=== PATIENT | male | born 1945 | race Caucasian/White ===

== ENCOUNTER 2018-06-02 13:56 | Emergency (ER) | payer OTHER ==
[~2018-06-02] VITALS: Ht 177.8 cm; Wt 136.1 kg
[~2018-06-02 13:56] MED LIST: CLEOCIN HCL300 MG PO; CLONIDINE0.1 M1 PO; FLO4 PO; GLIPIZIDE5 MG PO; KLOR-CON M2020 MEQ PO; LAC PO; LORAZEPAM1 MG PO; METFORMIN HCL1000 MG PO; METOCLOPRAMIDE10 MG PO; MONTELUKAST SOD10 M1 PO; NIFEDIPINE ER30 MG PO; PRILOSEC20 MG PO; SER25 PO; TOPROL XL100 MG PO
[2018-06-02 14:06] VITALS: BP 121/73; Ht 177.8 cm; Wt 136.1 kg
== END 2018-06-02 16:44 | disposition home or self-care (01) ==
LOC: ED 13:56
DX: K04.7 Periapical abscess without sinus (principal); I10 Essential (primary) hypertension; E11.9 Type 2 diabetes mellitus without complications; Z98.890 Other specified postprocedural states
CPT/HCPCS: J3490

== ENCOUNTER 2018-12-03 10:35 | Emergency (ER) | payer OTHER ==
[~2018-12-03] VITALS: Ht 172.7 cm; Wt 83.5 kg
[2018-12-03 12:15] LABS: BASOPHIL % 0.6 % (0-2); PLATELET COUNT 206 x10^3mcL (130-400); RED CELL DISTRIBUTION WIDTH 13.6 % (11.5-14.5)
[2018-12-03 12:36] LABS: CALCIUM 8.8 mg/dL (8.5-10.1); CARBON DIOXIDE 34.4 mmol/L (21-32); CHLORIDE SERUM 108 mmol/L (98-107); CREATININE SERUM 0.9 mg/dL (0.7-1.3); GLUCOSE SERUM 95 mg/dL (74-106); POTASSIUM SERUM 3.7 mmol/L (3.5-5.1); SODIUM SERUM 147 mmol/L (136-145)
[2018-12-03 12:46] LABS: ALKALINE PHOSPHATASE 85 U/L (46-116); ALT/SGPT 16 U/L (16-63); AST/SGOT 8 U/L (15-37); BILIRUBIN TOTAL 0.27 mg/dL (0.20-1.00); TOTAL PROTEIN, SERUM 6.3 g/dL (6.4-8.2)
[2018-12-03 15:08] LABS: microscopic required? YES; urine erythrocyte TRACE (NEGATIVE)
[2018-12-03 15:19] VITALS: BP 160/84
== END 2018-12-03 15:19 | disposition home or self-care (01) ==
LOC: ED 10:35
PROVIDERS: Emergency Medicine
DX: R60.9 Edema, unspecified (principal); I10 Essential (primary) hypertension; E11.9 Type 2 diabetes mellitus without complications
CPT/HCPCS: 36415; 83880; Q0092

== ENCOUNTER 2018-12-11 19:06 | Emergency (ER) | payer OTHER | END 2018-12-11 19:55 | disposition left against medical advice (07) | LOC: ED 19:06 | DX: Z53.21 Procedure and treatment not carried out due to patient leaving prior to being seen by health care provider (principal) ==

== ENCOUNTER 2019-05-08 17:55 | Inpatient (IN) | payer OTHER ==
[~2019-05-08] VITALS: Ht 177.8 cm; Wt 119.0 kg
--- NOTE | 2019-05-08 18:36 | NUR ---
FLU SPECIMEN COLLECTED AND GIVEN TO ENTERPRISE ACCOUNT EXECUTIVE.
[2019-05-08 18:39] LABS: BASOPHIL % 1.5 % (0-2); PLATELET COUNT 175 x10^3mcL (130-400); RED CELL DISTRIBUTION WIDTH 14.1 % (11.5-14.5)
--- NOTE | 2019-05-08 19:15 | NUR ---
HANDOFF REPORT GIVEN TO LEIGH WHARTON WHO WILL ASSUME ALL CARE.
[2019-05-08 19:16] LABS: ALBUMIN 3.4 g/dL (3.4-5.0); ALKALINE PHOSPHATASE 96 U/L (46-116); ALT/SGPT 21 U/L (16-63); AST/SGOT 14 U/L (15-37); BILIRUBIN DIRECT 0.23 mg/dL (0.0-0.2); BILIRUBIN TOTAL 0.79 mg/dL (0.20-1.00); CALCIUM 9.2 mg/dL (8.5-10.1); CARBON DIOXIDE 29.1 mmol/L (21-32); CHLORIDE SERUM 106 mmol/L (98-107); GLUCOSE SERUM 116 mg/dL (74-106); LIPASE 96 IU/L (73-393); POTASSIUM SERUM 3.5 mmol/L (3.5-5.1); SODIUM SERUM 142 mmol/L (136-145); TOTAL PROTEIN, SERUM 6.6 g/dL (6.4-8.2)
--- NOTE | 2019-05-08 20:18 | NUR ---
ANTIBIOTIC STARTED AFTER BLOOD CULTYRES WERE COLLECTED.. PATIENT IS STILL NOT ABLE TO GIVE URINE. FLUID IS INFUSING,
--- NOTE | 2019-05-08 21:28 | NUR ---
REPORT WAS GIVEN TO DEVENDRA. PATIENT TRANSPORTED TO ROOM 208B
--- NOTE | 2019-05-08 22:00 | NUR ---
RECEIVED PT FROM ED VIA MARIAH, CAME IN DUE TO SOB X1 DAY. DROWSY, AROUSABLE TO VERBAL STIMULI, ORIENTED X4. ABLE TO FOLLOW COMMANDS. MILD GARBLED SPEECH NOTED. NO SOB NOTED AT THIS TIME, LUNG SOUNDS DIMINISHED ON AUSCULTATION, O2 SAT=97% ON 2LPM/NC. W/ NON-PRODUCTIVE COUGH. DENIES CHEST PAIN/PRESSURE, SR W/ BBB. DENIES ABDOMINAL DISCOMFORT. ABDOMEN IS SOFT AND DISTENDED. VOIDS. W/ BUE SCABS AND LEFT 2ND TOE SCAB, SUPERVISOR ORE DRESSING. W/ BLE SWELLING AND WEAK PEDAL PULSES. SIDE RAILS UPX2. CALL LIGHT ON REACH. HOB ELEVATED AT 30 DEG. ON AIR MATTRESS. GENERALIZED WEAKNESS. ENDORSED TO PRIMARY NURSE DEVENDRA FOR CONTINUITY OF CARE
[2019-05-08 22:41] VITALS: BP 97/56
[2019-05-08 22:43] VITALS: Ht 177.8 cm; Wt 119.0 kg
--- NOTE | 2019-05-09 01:17 | NUR ---
RANDOM BS CHECKED @ 71 MG/DL. NURSE BEDSIDE SWALLOW EVAL DONE.HOB KEPT ELEVATED.TRIAL 1 TSP APPLE SAUCE GIVEN.ABLE TO SWALLOW BUT WITH SOME CUES. SIPS OF MILK GIVEN AND TOLERATED WELL.NO COUGHING NOTED.URINE SPECIMEN COLLECTED.WILL CONTINUE TO MONITOR.
[2019-05-09 02:30] VITALS: BP 97/56
[2019-05-09 03:14] LABS: microscopic required? NO
[2019-05-09 03:28] LABS: urine erythrocyte NEGATIVE (NEGATIVE)
[2019-05-09 04:31] LABS: AMPHETAMINE QUAL UR NONE DETECTED (See below)
--- NOTE | 2019-05-09 04:49 | NUR ---
PT SLEPT WELL WITH EPISODES OF CONFUSION AND DISORIENTATION.REORIENTATION PROVIDED.O2 @ 2L/MIN VIA N/C.DENIES CHESTPAIN.ALL NEEDS MET.WILL CONTINUE TO MONITOR.
--- NOTE | 2019-05-09 05:48 | NUR ---
CT SCAN OF THE HEAD DONE.LATEST TEMP @ 98.5 F.BS THIS AM @ 77 MG/DL.WILL CONTINUE TO MONITOR.
[2019-05-09 05:49] VITALS: BP 109/70
[2019-05-09 06:17] LABS: PLATELET COUNT 182 x10^3mcL (130-400); RED CELL DISTRIBUTION WIDTH 14.5 % (11.5-14.5)
[2019-05-09 06:35] LABS: CALCIUM 8.7 mg/dL (8.5-10.1); CARBON DIOXIDE 28.4 mmol/L (21-32); CHLORIDE SERUM 106 mmol/L (98-107); CREATININE SERUM 1.1 mg/dL (0.7-1.3); GLUCOSE SERUM 79 mg/dL (74-106); MAGNESIUM 1.7 mg/dL (1.8-2.4); PHOSPHOROUS 3.5 mg/dL (2.5-4.9); POTASSIUM SERUM 3.8 mmol/L (3.5-5.1); SODIUM SERUM 144 mmol/L (136-145)
--- NOTE | 2019-05-09 07:25 | NUR ---
SEEN AOX3, ORIENTED TO PERSON AND PLACE,STABLE VITAL SIGNS, AFEBRILE, ANGRY MOOD, TELE 3, SR , PAC, AND 1ST DEGREE AVB, PALPABLE PULSES, +1 EDEMA BLE, CTA ON BLF, O2 AT 2LPM VIA NC, + BS, NON TENDER, NO ORGANOMEGALY, VOIDS WITH NO DYSURIA, FULL ROM , GENERALIZED WEAKNESS, AIR MATTRESS, BLE SCALY SKIN, ESCHAR ON L 2ND TOE, NO PAIN AT THIS TIME, IV INTACT AND PATENT AT LAC AND RH, NO REDNESS OR INFILTRATION. CALL LIGHT WITHIN REACH. BED AT LOWEST POSITION.
[2019-05-09 08:17] VITALS: BP 120/60
[2019-05-09 08:47] LABS: ATYPICAL LYMPH 4 %; BAND NEUTROPHIL 1 % (0-10); SEGMENTED NEUTROPHILS 92 % (37-75); rbc morphology (normal/abnorm) NORMAL (NORMAL)
--- NOTE | 2019-05-09 09:20 | NUR ---
DR MEDINA AND MEDICAL TEAM MADE ROUNDS, QUESTIONS ADDRESSED.
--- NOTE | 2019-05-09 09:28 | NUR ---
SEEN NOT IN DISTRESS. AFEBRILE, COMPLAINTS OF CHILLS, BP 120/60 HR 69. ASA , LISINOPRIL PO GIVEN. MG 1.7. MAGNESIUM OXIDE PO GIVEN. COUGH NOTED, GUAIFENESIN ER PO GIVEN. LEUKOCYTOSIS OF 26.6 , LEVAQUIN IVPN INFUSING WELL AT 100CC/HR. NO REDNESS OR INFILTRATION. CALL LIGHT WITHIN REACH. BED AT LOWEST POSITION.
--- NOTE | 2019-05-09 10:04 | NUR ---
CANE AND PHONE BELONGINGS AT HOME OF PATIENT, CONFIRMED BY FRIEND IN FRONT OF PATIENT. PATIENT AWARE AND THANKFUL.
--- NOTE | 2019-05-09 10:37 | NUR ---
PT WAS SEEN FOR DYSPHAGIA. PT WAS ABLE TO SAFELY SWALLOW MS DIET WITH CHOPPED MEAT AND VEG WITHOUT S/S OF ASPIRATION. PT NEEDED REMINDER FOR SLOW SPEED DURING MEAL TIME. RECOMMENDATION MS DIET WITH CHOPPED MEAT AND VEG WITH THIN LIQUID SMALL BITES AND SIPS ONLY
--- NOTE | 2019-05-09 11:15 | NUR ---
ACCUCHECK DONE WITH CBG 105. NO INSULIN REQUIRED.
--- NOTE | 2019-05-09 12:14 | NUR ---
PATIENT TRANSPORTED BY [facility] PER WHEEL CHAIR TO CT SCAN. TELEMONITOR ON STANDBY AND AT PATIENT'S BEDSIDE DRAWER.
--- NOTE | 2019-05-09 12:30 | NUR ---
PATIENT TRANSPORTED BACK TO ROOM. TELEMONITOR REATTACHED TO CHEST.
[2019-05-09 17:09] VITALS: BP 152/78
--- NOTE | 2019-05-09 17:17 | NUR ---
ACCUCHECK DONE WITH CBG 92. NO INSULIN REQUIRED. MORPHINE IVP GIVEN FOR BACK PAIN. 11/07
--- NOTE | 2019-05-09 18:35 | NUR ---
dr jaramillo made aware of ct scan results and patient's high bp 152/73, associated with back pain. per dr jaramillo, she will look into it.
[2019-05-09 19:15] VITALS: BP 96/51
--- NOTE | 2019-05-09 19:15 | NUR ---
RECEIVED PT AWAKE ALERT TO NAME BIRTHDATE ONLY AND VERBALLY RESPONSIVE.BREATHING EASY AND NON-LABORED.DIMINISHED BREATHSOUNDS.TOLERATING ROOMAIR AT THIS TIME.O2 SAT @ 92%.DENIES SOB/DIFFICULTY BREATHING.DENIES CHESTPAIN.BP 96/51 MMHG,HR 76.LATEST TEMP @ 97.7F.PITTING EDEMA TO BLE.ELEVATED ON A PILLOW.ASSISTED STANDING UP TO USE URINALS AND VOIDED.BEDALARM ON AT THIS TIME.WILL CONTINUE TO MONITOR.
--- NOTE | 2019-05-10 04:39 | NUR ---
PT SLEPT WITH INTERVALS.EPISODES OF CONFUSION.REALITY ORIENTATION PROVIDED.BREATHING EASY AND NON-LABORED.USES O2 NEEDED.ON RT PROTOCOL.BREATHING TX GIVEN ORDERED.MEDICATED WITH NORCO 7.5 MG PO FOR BACK PAIN WITH GOOD RELIEF.DENIES CHESTPAIN.ALL NEEDS MET.WILL CONTINUE TO MONITOR.
[2019-05-10 06:13] VITALS: BP 130/78
[2019-05-10 06:42] LABS: CALCIUM 8.7 mg/dL (8.5-10.1); CARBON DIOXIDE 26.4 mmol/L (21-32); CHLORIDE SERUM 104 mmol/L (98-107); CREATININE SERUM 0.9 mg/dL (0.7-1.3); GLUCOSE SERUM 129 mg/dL (74-106); MAGNESIUM 1.8 mg/dL (1.8-2.4); PHOSPHOROUS 2.2 mg/dL (2.5-4.9); POTASSIUM SERUM 3.4 mmol/L (3.5-5.1); SODIUM SERUM 138 mmol/L (136-145)
[2019-05-10 07:02] LABS: BASOPHIL % 0.1 % (0-2); PLATELET COUNT 160 x10^3mcL (130-400); RED CELL DISTRIBUTION WIDTH 14.4 % (11.5-14.5)
--- NOTE | 2019-05-10 08:00 | NUR ---
RECEIVED PATIENT ALERT AND ORIENTED TIMES TWO PATIENT HAS BEEN OOB WITH WALKER WITH THE PHYSICAL THERPY AND TOLERATED AMBULATION WELL. PATIENT HAS BEEN GIVEN HIS MEDICATION BY THE STAND GRINDER AND INSTRUCTOR. PATIENT AHS BEEN WITH DIMINISHED BREATH SOUNDS AND BOWEL SOUNDS ACTIVE. PATIENT HAS ABDOMEN DISTENDED AND MODERATELY FIRM. PATIENT HAS EDEMA TO THE LOWER EXTREMITES OF ONE PLUS AND PITTING. PATIENT HAS HISTORY OF DM, HTN. AND RIGHT KNEE REPLACEMENT.DUE TO PATIENT WITH INTERMITTANT CONFUSION AND CONCERN FOR FALLING PATIENT IS ADVISED TO CALL FOR ASSIST WHEN HE WANTS OOB. PATIENT HAS BEEN ON LEVAQUIN AND NO ADVERSE REACTION NOTED. VITALS AT THIS TIME AT 98.3, 18, 130/75, 96% ON ROOM AIR. PATIENTAS NOTED CARDIOMEGALY AND HAS BEEN WITH LAST BLOOD SGUAR AT 131. HE HAS WBC AT 16.4 AT THIS TIME PATIENT ON MUCOMYST ORDERED AND HAS HISTORY OF BPH WELL. PATIENT HAS SOME PSYCH ISSUES AND ON SERAQUIL. WILL CONTINUE TO MONITOR AND NO SEVERE SOB AT THIS TIME. 126/73, 98%. CORAZONFEDERICA HAS CHEST XRA THAT JENNIFEROS
[2019-05-10 09:20] VITALS: BP 133/65
[2019-05-10 13:27] VITALS: BP 117/66
--- NOTE | 2019-05-10 14:18 | NUR ---
BLOOD SUGAR AT THIS TIME AT 070 AND COVERAGED WITH 3 UNITS INDICATED. PATIENT IS INTERMITTNATNLY CONFUSED AND REORIENTED INDICATED.
--- NOTE | 2019-05-10 16:32 | NUR ---
PATIENT WITH INTERMITTANT CONFUSION AND HAS BEEN ASKING TO GO HOME. PATIENT WAS SEEN BY NO DISCHARGE NOTED AT THIS TIME. PATIENT HAS BEEN FIGGITY SINCE THIS AM. HE HAS BEEN A LITTLE OFF IN HIS BEHAVIOR AND HE HAS TROUBLE GRASPING TEACHIGN. PATIENT HAS BEEN ON BEDREST AND MODERATELY WEAK AT THIS TIME. ENCOURAGE TO REQUEST ASSIST NEEDED.
[2019-05-10 17:28] VITALS: BP 165/90
--- NOTE | 2019-05-10 18:15 | NUR ---
SAW TAILER CALLED AND WANTS TO KNOW ABOUT THE DRESSING TO HTE LOWER EXTREMITIES AND WHETHER OR NOT TO SEND THE HOME HEALTH TO [facility] TO DO FOR THE PATIENT. PATIENT HAS NO BEEN ON THESE DRESSING OR WRAPS HERE AND THEY HAVE BEEN REMOVED. PATIENT CAREGIVER STATES HE NEEDS TO HAVE THE DRESSINGS HIS LEGS SWELL BADLY AND HE CAN NOT DO WITHOUT. ADVISED THE CAREGIVEN THAT THE DRESSING HAVE NOT BEEN USED IN HIS CARE HER AT [facility] AND HAS BEEN WITH SOME EDEMA BUT NOT EXCESSIVE AT THIS TIME. WILL ADVISE THE ON COMING SHIFT AND SEND A TO FOLLOW UP WITH THE PRIMARY DOCTORS INDICATED.
--- NOTE | 2019-05-10 20:00 | NUR ---
PT RECIEVED AWAKE ALERT AND ORIENTED TO SELF AND PLACE,REG RESP NO SOB PT ON 2L N/C SAT 96%,HOB,ABDO IS SOFT OBESE WITH ACTIVE BOWEL SOUNDS,PT WITH BLE EDEMA AND DISCOLORATION 2+ EDEMA WITH WEAK PULSES,BED IN THE LOW POSITION AND LOCKED,KEPT CLEAN AND DRY TO TOUCH,CALL LIGHT EASY REACHED AND WILL CONTINUE TO MONITOR.
[2019-05-10 20:30] VITALS: BP 110/54
[2019-05-10 20:35] VITALS: BP 110/54
--- NOTE | 2019-05-10 20:42 | NUR ---
ECHOCARDIOGRAM COMPLETED.
--- NOTE | 2019-05-11 02:07 | NUR ---
PT WAS HELP TO USE THE URINAL,KEPT CLEAN AND DRY TO TOUCH AND WILL CONTINUE TO MONITOR.
[2019-05-11 05:57] VITALS: BP 176/89
[2019-05-11 06:09] LABS: BASOPHIL % 0.2 % (0-2); PLATELET COUNT 164 x10^3mcL (130-400); RED CELL DISTRIBUTION WIDTH 14.5 % (11.5-14.5)
--- NOTE | 2019-05-11 06:20 | NUR ---
PT HAD A RESTING NIGHT NO CHANGE AT THIS TIME,PT SOMETIMES CONFUSED,WILL CONTIONUE TO MONITOR.
[2019-05-11 06:46] LABS: CALCIUM 9.2 mg/dL (8.5-10.1); CARBON DIOXIDE 29.9 mmol/L (21-32); CHLORIDE SERUM 106 mmol/L (98-107); CREATININE SERUM 0.8 mg/dL (0.7-1.3); GLUCOSE SERUM 131 mg/dL (74-106); MAGNESIUM 1.7 mg/dL (1.8-2.4); PHOSPHOROUS 2.7 mg/dL (2.5-4.9); POTASSIUM SERUM 4.1 mmol/L (3.5-5.1); SODIUM SERUM 141 mmol/L (136-145)
--- NOTE | 2019-05-11 07:10 | NUR ---
RECEIVED REPORT FROM NIGHT NURSE PATIENT SITTING UP IN BED A&O X3 ON 2L NC TOLERATING WELL NO S/S OF ANY REPIRATORY DISTRESS Pt DENIES ANY SOB AT THIS TIME. CHEST RISE EQUAL AND UNLABORED. Pt HAS VISUAL DEFICITS BUT STATES "I DON'T USE GLASSES" REORIENTED TO ROOM AND CALL LIGHT AND INSTRUCTED TO USE FOR ALL NEEDS. LUNGS CTA BILAT. IV ON R HAND AND LAC PATENT AND INTACT NO REDNESS OR EDEMA. ALL NEEDS ADDRESSED AT THIS TIME. BED IN LOWEST POSITION CALL LIGHT WITHIN REACH. WILL CONTINUE TO MONITOR.
--- NOTE | 2019-05-11 08:48 | NUR ---
Pt SITTING UP IN BED ADMINISTERED SCHEDULED MEDS Pt TOLERATED WELL NO ADVERSE REACTIONS WELL. Pt STATED "YOU GUYS AREN'T PULLING MY LEG AND KEEPING ME HERE ARE YOU." ASSESSED Pt ORIENTATION Pt A&O X3 WITH EPISODES OF PARANOIA. ASSISTED PtWITH REPOSITION MINIMAL ASSISTANCE NEEDED. ALL NEEDS ATTENDED AT THIS TIME. BED IN LOWEST POSITION CALL LIGHT WITHIN REACH. WILL CONTINUE TO MONITOR.
[2019-05-11 09:01] VITALS: BP 175/95
--- NOTE | 2019-05-11 10:01 | NUR ---
Pt STANDING UP BY HIS BED STATED "I WANTED TO GO TO THE GARDEN, BUT I THINK I DREAMED IT WAS A DREAM" REORIENTED PATIENT TO ROOM AND ASSESSED ORIENTATION. Pt STATED "I DON'T KNOW ABOUT YOU GUYS WHAT DO YOU WANT FROM ME HERE" ALL QUESTIONS AND CONCERNS ADDRESSED AT THIS TIME. SAFETY PRECAUTIONS IN PLACE. WILL CONTINUE TO MONITOR.
--- NOTE | 2019-05-11 11:30 | NUR ---
PATIENT AMULATING IN HALLWAY WITH A WALKER ASSISSTED WITH PT. PATIENT STABLE WITH WALKER, SLOW STEADY GAIT NOTED.
--- NOTE | 2019-05-11 14:26 | NUR ---
Pt LYING IN BED WITH EYES CLOSED BUT AROUSABLE. ALL NEEDS ATTENDED TO AT THIS TIME. BED IN LOWEST POSITION , BED ALARM ON AND CALL LIGHT WITHIN REACH. ALL FALL RISK PROTOCOLS IN PLACE. WILL COTNINUE TO MONITOR.
--- NOTE | 2019-05-11 15:13 | NUR ---
Spoke to Pt board and care and they agreed to receive the Pt back to their facility. Reported to Dr Bush awaiting discharge orders. manager trust Marya perez.
[2019-05-11] MEDS ORDERED: CLEOCIN HCL300 MG PO (16:25)
[2019-05-11 16:54] VITALS: BP 156/86
[2019-05-11 16:59] VITALS: BP 156/86
--- NOTE | 2019-05-11 18:16 | NUR ---
DISCHARGE INSTRUCTION GIVEN TO Pt AND FRIEND PIERRE OF THE BOARD AND CARE. BOTH VERBALIZED UNDERSTANDING PAPER WORK SIGNED. BOTH IV D/C'D CATHETER INTACT NO REDNESS OR EDEMA DRESSING APPLIED. ALL PERSONAL BELONGINGS TAKEN WITH Pt. ALL QUESTIONS AND CONCERNS ADDRESSED. ESCORTED Pt TO LOBBY VIA WHEEL CHAIR. FRONT WHEEL WALKER PROVIDED.
== END 2019-05-11 18:20 | DRG 871 ==
LOC: ED 17:55 → DU 20:25 → MU 20:25 → DU 21:43 → MU 05-10 14:33
PROVIDERS: Student in an Organized Health Care Education/Training Program; ADMIT Internal Medicine
DX: A41.9 Sepsis, unspecified organism (principal); J18.9 Pneumonia, unspecified organism; G93.41 Metabolic encephalopathy; Z68.41 Body mass index [BMI] 40.0-44.9, adult; R91.1 Solitary pulmonary nodule; I71.2 Thoracic aortic aneurysm, without rupture; I10 Essential (primary) hypertension; E11.9 Type 2 diabetes mellitus without complications; Z96.651 Presence of right artificial knee joint; Z79.84 Long term (current) use of oral hypoglycemic drugs; Z87.891 Personal history of nicotine dependence
CPT/HCPCS: 36600; 82962; 83880; 87804; 92526-GN; 92610-GN; 94150; 97116-GP; 97530-GP; G0378; J0360; J0456; J0696; J1956; J2270; J7030; J7050; J7620; Q0092

== ENCOUNTER 2019-10-15 14:35 | Inpatient (IN) | payer OTHER, SELFPAY ==
[~2019-10-15] VITALS: Ht 182.9 cm; Wt 124.7 kg
[2019-10-15 14:55] VITALS: Ht 182.9 cm; Wt 124.7 kg
--- NOTE | 2019-10-15 14:55 | NUR ---
74 YEAR BIBA FOR ABDOMINAL PAIN AND ALOC. PER MEDICS, PT IS LIVING AT A [facility] CARE AND THEY NOTICED HE WAS MORE CONFUSED THAN NORMAL. PTS BASELINE IS UNKNOWN. PT IS CURRENTLY AAOX1, CAN RECALL NAME. PT IS ABLE TO FOLLOW COMMANDS, BUT MORE ASKED COMPLEX QUESTIONS, HE IS UNABLE TO VERBALIZE AND BEGINS SPEAKING ABOUT UNRELATED SUBJECTS. PTS ONLY COMPLAINT IS GENERALIZED ABDOMINAL PAIN. PT IS AWAKE, ALERT, RESP E/U. PT ON FULL CM AND PULSE OX AND IN FULL VIEW OF NURSES STATION.
[2019-10-15 15:29] LABS: BASOPHIL % 0.9 % (0-2); PLATELET COUNT 201 x10^3mcL (130-400); RED CELL DISTRIBUTION WIDTH 14.4 % (11.5-14.5)
[2019-10-15 16:03] LABS: CALCIUM 9.1 mg/dL (8.5-10.1); CARBON DIOXIDE 27.2 mmol/L (21-32); CHLORIDE SERUM 103 mmol/L (98-107); CREATININE SERUM 1.1 mg/dL (0.7-1.3); GLUCOSE SERUM 137 mg/dL (74-106); POTASSIUM SERUM 3.5 mmol/L (3.5-5.1); SODIUM SERUM 140 mmol/L (136-145)
[2019-10-15 16:05] LABS: microscopic required? NO
[2019-10-15 16:10] LABS: ALBUMIN 3.7 g/dL (3.4-5.0); ALKALINE PHOSPHATASE 92 U/L (46-116); ALT/SGPT 22 U/L (16-63); AST/SGOT 16 U/L (15-37); BILIRUBIN TOTAL 0.6 mg/dL (0.20-1.00); C REACTIVE PROTEIN 2.4 mg/dL (<=0.9); LACTIC DEHYDROGENASE (LDH) 205 U/L (100-190); LIPASE 110 IU/L (73-393); TOTAL PROTEIN, SERUM 7.2 g/dL (6.4-8.2)
[2019-10-15 16:26] LABS: urine erythrocyte NEGATIVE (NEGATIVE)
--- NOTE | 2019-10-15 17:34 | NUR ---
PT ORGANIZED IN BED. BED LINENS CHANGED AND PT REMINDED TO REMAIN IN BED. PT COOPERATIVE AND NOW IS IN LAYING SUPINE WITH EYES CLOSED.
--- NOTE | 2019-10-15 17:41 | NUR ---
PT CONTINUES TO SPEAK IN AN INAPPROPRIATE MANNER. BRINGS UP RANDOM SUBJECTS OF CONVERSATION, THEN TRAILS OFF, MUMBLING WORDS THAT ARENT COMPREHENSIBLE. PT REORIENTED AND LIGHTS TURNED DOWN FOR COMFORT.
[2019-10-15 18:08] LABS: AMPHETAMINE QUAL UR NONE DETECTED (See below)
[2019-10-15 18:24] LABS: T3 TOTAL 1.07 ng/mL
[2019-10-15 18:27] LABS: FREE T4 1.02 ng/dL (0.76-1.46); FREE THYROXINE INDEX 2.3 ug/dL (1.4-4.5); T4(THYROXINE) 5.9 ug/dL (4.7-13.3)
--- NOTE | 2019-10-15 18:37 | NUR ---
PT LAYING COMFORTABLY IN GURNEY IN SUPINE POSITION WITH EYES CLOSED. GOOD CHEST RISE AND FALL NOTED.
[2019-10-15 18:41] LABS: CHOLESTEROL/HDL RATIO 3.7; MAGNESIUM 1.6 mg/dL (1.8-2.4); PHOSPHOROUS 1.9 mg/dL (2.5-4.9)
--- NOTE | 2019-10-15 19:15 | NUR ---
RECEIVED REPORT FROM CHEL ABRAHAM. PT RESTING ON GURNEY IN NAD. FULL CM AND [address]. PT REMAINS GSC 14 AT THIS TIME. PT BREATHING EVEN AND UNLABORED. WILL CONTINUE TO MONITOR.
--- NOTE | 2019-10-15 19:52 | NUR ---
REPORT GIVEN TO PEPPER ABRAHAM AT EXT [id number].
--- NOTE | 2019-10-15 20:10 | NUR ---
PT TRANSFERED TO TELE AT THIS TIME VIA GURNEY BY [facility] EMT AND JULIO RN. PT BREATHING EVEN AND UNLABORED. IV INTACT AND FLUSHES WITH NO COMPLICATIONS. PEPPER RN TO ASSUME CARE OF PT AT THIS TIME.
--- NOTE | 2019-10-15 20:15 | NUR ---
RECEIVED PT VIA GURNEY FROM E/D, ACCOMPANIED BY RN AND TRANSPORTER. PT LETHARGIC, ORIENTED X 2 (PERSON/PLACE ONLY), SLOW TO RESPOND, COOPERATIVE TO CARE; PT IS FROM [place]; PT UNABLE TO STATE THE NAME OF THE PLACE HE IS FROM. ON TELE # 8, SR + PVCs + BBB + 1AVB, DENIES CHEST PAIN OR DISCOMFORT AT THIS TIME. VERONICA RADIAL PULSES PRESENT, VERONICA PEDAL PULSES WEAK, +1 PITTING EDEMA TO BLE, CAP REFILL < 3 SECS. BUL/BLL DIM, CHEST RISING EVENLY, R/A, 95%, SOB ON EXERTION, DRY COUGH. ABD SOFT, ROUND, NON-TENDER, NORMOACTIVE BOWEL SOUNDS X 4 QUADS, LAST BM 10/13/2019, FORMED; HAS UMBILICAL HERNIA; UNABLE TO TASTE OR SMELL. INCONTINENT OF BLADDER, DENIES DYSURIA. GENERALIZED WEAKNESS, AMBULATORY W/ CANE @ BASELINE, CURRENTLY BEDBOUND, FALL RISK PROTOCOL IN PLACE. NOTED CHRONIC BLE VENOUS STASIS DERMATITIS, CAT OPERATOR. IV SITE LAC 18G, CDI. UNABLE TO FULLY ORIENT PT TO ANYTHING D/T ALOC. SIDE RAILS UP X 2, BED IN LOW POSITITION, CALL LIGHT WITHIN REACH. WILL ENDORSE TO LEIGH PABON.
--- NOTE | 2019-10-15 21:00 | NUR ---
PT RECIEVED FROM ALLYSON ABRAHAM. PT RESTING IN BED AT THIS TIME. NO S/S OF ACUTE DISTRESS AT THIS TIME. IV TO LAC NOTED AT THIS TIME. WILL CONTINUE TO MONITOR.
[2019-10-15 21:18] VITALS: BP 111/64
--- NOTE | 2019-10-15 22:00 | NUR ---
PT HAD LARGE BM. PT FOUND WITH IV REMOVED. PT REFUSING IV PLACEMENT AT THIS TIME. PT CLEANED AND MADE COMFROTABLE. WILL CONTINUE TO MONITOR.
--- NOTE | 2019-10-16 | NUR ---
PT RESTING IN BED AT THIS TIME. DENIES PAIN OR DISCOMFORT. PT BREATHING E/U ON RA. NO S/S OF PAIN OR DISCOMFORT NOTED AT THIS TIME. WILL CONTINUE TO MONITOR.
[2019-10-16 05:47] VITALS: BP 114/57
--- NOTE | 2019-10-16 07:30 | NUR ---
RECEIVED PT FROM AXEL ABRAHAM. PT AAOX4. PT ON TELE #8. DENIES CHEST PAIN. PT ON RA W/ NO SOB OR DISTRESS NOTED. ALL QUESTIONS AND CONCERNS ADDRESSED. ALL NEEDS MET AT THIS TIME. NO PAIN AT THIS TIME. IV TO LFA. IV CDI AND PATENT. HEPLOCKED. PT IS STABLE AT THIS TIME. ALL SAFETY AND COMFORT MEASURES IN PLACE. BED IN LOW POSITION, 2 SIDE RAILS UP. CALL LIGHT WITH IN REACH. ALL QUESTIONS AND CONCERNS ADDRESSED. WILL CONTINUE TO MONITOR PT.
--- NOTE | 2019-10-16 07:33 | NUR ---
PT RESTING IN BED AT THIS TIME. BREATHING E/U ON RA. IV TO LFA PLACED AT THIS TIME. NO S/S OF ACUTE DISTRESS NOTED. ALL NEEDS AND CONCERNS ADDRESSED. WILL ENDORSE TO DAY NURSE.
[2019-10-16 07:46] LABS: BASOPHIL % 0.2 % (0-2); PLATELET COUNT 172 x10^3mcL (130-400)
[2019-10-16 07:55] LABS: CALCIUM 8.5 mg/dL (8.5-10.1); CARBON DIOXIDE 29.4 mmol/L (21-32); CHLORIDE SERUM 103 mmol/L (98-107); CREATININE SERUM 1.2 mg/dL (0.7-1.3); GLUCOSE SERUM 101 mg/dL (74-106); MAGNESIUM 1.7 mg/dL (1.8-2.4); PHOSPHOROUS 3.1 mg/dL (2.5-4.9); POTASSIUM SERUM 3.8 mmol/L (3.5-5.1); SODIUM SERUM 139 mmol/L (136-145)
[2019-10-16 07:56] LABS: RED CELL DISTRIBUTION WIDTH 14.7 % (11.5-14.5)
[2019-10-16 08:17] LABS: C REACTIVE PROTEIN 16.3 mg/dL (<=0.9)
[2019-10-16 09:00] VITALS: BP 110/58
[2019-10-16 09:14] LABS: PATH REVIEW for HEMA NO
--- NOTE | 2019-10-16 10:09 | NUR ---
DR DOUGLAS NOTIFIED ABOUT WBC 25.4. ALL QUESTIONS AND CONCERNS ADDRESSED. NO FURTHER ORDERS RECEIVED. ALL NEEDS MET AT THIS TIME. WILL CONTINUE TO MONITOR PT.
--- NOTE | 2019-10-16 11:30 | NUR ---
MAG 1.7. DR OVALLE MADE AWARE. AWAITING ORDERS. ALL QUESTIONS AND CONCERNS ADDRESSED. ALL NEEDS MET AT THIS TIME. WILL CONTINUE TO MONITOR PT.
[2019-10-16 13:48] VITALS: BP 118/71
--- NOTE | 2019-10-16 14:13 | NUR ---
IN TO SEE PT. PT REMAINS STABLE W/ NO ACUTE CHANGES TO STATUS. PT HAS PERIODS OF FORGETFULNESS. SPOKE TO PT'S SON, AND PER PT'S SON THIS IS PT'S BASELINE. ALL QUESTIONS AND CONCERNS ADDRESSED. ALL NEEDS MET AT THIS TIME. WILL CONTINUE TO MONITOR PT
--- NOTE | 2019-10-16 17:26 | NUR ---
SPOKE WITH DR. BUSH MADE AWARE PT HAD SUFFERED A FALL. ONCE MORE INQUIRED ABOUT RESTRAINTS AND OBTAINED T.OJamaica BLUM TO ADD ORDER. ASKED TO COME BY STATION TO SIGN ORDER. ATTENDING NURSE MADE AWARE.
--- NOTE | 2019-10-16 17:39 | NUR ---
PT FOUND ON HIS KNEES THE FLOOR. PT AAOX1 ORIENTED TO SELF. WHEN ASKED WHAT YEAR IT IS, PT STATED "1970s". PT REORIENTED TO TIME, SITUATION, AND PLACE. PT ASSESSED, NO INJURIES OBTAINED. PT DENIES PAIN AT THIS TIME. IV FOUND ON THE GROUND. CATHETER INTACT. DRESSING APPLIED TO SITE. PT STATED HE CLIMBED OUT OF BED AND WAS SLEEP WALKING. PT REMAINS STABLE AT THIS TIME. ALL QUESTIONS AND CONCERNS ADDRESSED. ALL NEEDS MET AT THIS TIME. WILL CONTINUE TO MONITOR PT.
[2019-10-16 17:40] VITALS: BP 128/63
--- NOTE | 2019-10-16 18:49 | NUR ---
P.T. NOTES P.T. EVAL COMPLETED; WILL BENEFIT W/ P.T. POST ACUTE STAY; O2 SAT ROOM AIR=94%, KK=896/48, HR=64.
--- NOTE | 2019-10-16 19:45 | NUR ---
REPORT GIVEN TO TERRY ABRAHAM. PT REMAINED STABLE THROUGHOUT MY SHIFT. ALL QUESTIONS AND CONCERNS ADDRESSED. ALL NEEDS MET AT THIS TIME. ALL CARES ENDORSED TO NIGHT RN
--- NOTE | 2019-10-16 19:45 | NUR ---
RECEIVED PT IN BED AWAKE, ALERT,ORIENTED TO PERSON AND PLACE. PT DISORIENTED TO TIME. LUNG SOUNDS DIMINISHED. NO SOB ON ROOM AIR. HE HAS NO C/O PAIN AT THIS TIME. PT STATED HE IS HUNGRY AND ASKING FOR FOOD. NO IV ACCESS NOTED. W/ BILAT SOFT WRIST RESTRAINTS IN PLACE. CALL LIGHT W/IN REACH.
[2019-10-16 20:52] VITALS: BP 139/85
--- NOTE | 2019-10-16 22:41 | NUR ---
EXPLAINED TO PATIENT IMPORTANCE OF HAVING IV ACCESS BUT HE REFUSED TO HAVE IT STARTED.
--- NOTE | 2019-10-17 05:17 | NUR ---
PT SLEPT ON AND OFF. HE REMAINS CONFUSED AT TIMES AND TRYING TO GET OOB. PT REORIENTED TO TIME AND SITUATION . HE HAD NO C/O PAIN. NO EPISODE OF RESP. DISTRESS. HE REMAINS ON ROOM AIR. PT STILL REFUSED IV REINSERTION WHEN ASKED THE SECOND TIME. BILAT SOFT WRIST RESTRAINTS IN PLACE W/ GOOD CIRCULATION MAINTAINED.
--- NOTE | 2019-10-17 05:30 | NUR ---
INFORMED RESIDENT THAT PT REFUSED IV REINSERTION.
--- NOTE | 2019-10-17 06:24 | NUR ---
TF=070/100. AM DOSE OF LISINOPRIL 5 MG PO GIVEN. PAGED RESIDENT TO INFORM HER AND WAITING FOR HER CALL BACK.
[2019-10-17 06:32] VITALS: BP 170/100
[2019-10-17 07:13] LABS: BASOPHIL % 0.5 % (0-2); PLATELET COUNT 166 x10^3mcL (130-400)
[2019-10-17 07:16] LABS: RED CELL DISTRIBUTION WIDTH 14.6 % (11.5-14.5)
[2019-10-17 07:25] LABS: CALCIUM 9.1 mg/dL (8.5-10.1); CARBON DIOXIDE 30.4 mmol/L (21-32); CHLORIDE SERUM 103 mmol/L (98-107); GLUCOSE SERUM 119 mg/dL (74-106); PHOSPHOROUS 1.9 mg/dL (2.5-4.9); POTASSIUM SERUM 3.7 mmol/L (3.5-5.1); SODIUM SERUM 139 mmol/L (136-145)
--- NOTE | 2019-10-17 07:25 | NUR ---
RECEIVED PT FROM TERRY ABRAHAM. PT AAOX2. PT ON TELE #8. DENIES CHEST PAIN. PT ON RA W/ NO SOB OR DISTRESS NOTED. ALL QUESTIONS AND CONCERNS ADDRESSED. ALL NEEDS MET AT THIS TIME. NO PAIN AT THIS TIME. NO IV ACCESS. MD AWARE. PT IS STABLE AT THIS TIME. ALL SAFETY AND COMFORT MEASURES IN PLACE. BED IN LOW POSITION, 2 SIDE RAILS UP. CALL LIGHT WITH IN REACH. ALL QUESTIONS AND CONCERNS ADDRESSED. WILL CONTINUE TO MONITOR PT.
--- NOTE | 2019-10-17 09:15 | NUR ---
DR KELLEY MADE AWARE OF PT REFUSING IV ACCESS. ALL QUESTIONS AND CONCERNS ADDRESSED. ALL NEEDS MET AT THIS TIME. WILL CONTINUE TO MONITOR PT.
[2019-10-17 09:24] VITALS: BP 170/101
--- NOTE | 2019-10-17 09:32 | NUR ---
DR KELLEY GIVE VERBAL ORDER TO REMOVE RESTRAINTS. ALL QUESTIONS AND CONCERNS ADDRESSED ALL SAFETY MEASURES IN PLACE. WILL CONTINUE TO MONITOR PT.
--- NOTE | 2019-10-17 11:56 | NUR ---
DR DOUGLAS NOTIFIED ABOUT PHOS 1.9. AWAITING ORDERS. ALL QUESTIONS AND CONCERNS ADDRESSED. ALL NEEDS MET AT THIS TIME. WILL CONTINUE TO MONITOR PT.
[2019-10-17 14:07] VITALS: BP 132/86
--- NOTE | 2019-10-17 14:45 | NUR ---
RECEIVED A PHONE CALL FROM PT'S SON WALTER FERRER. PT'S SON UPDATED ON PT'S STAY. ALL QUESTIONS AND CONCERNS ADDRESSED. ALL NEEDS MET AT THIS TIME. WILL CONTINUE TO MONITOR PT.
[2019-10-17 17:32] VITALS: BP 121/73
--- NOTE | 2019-10-17 19:25 | NUR ---
REPORT GIVEN TO MIRNA ABRAHAM. PT REMAINED STABLE THROUGHOUT MY SHIFT. ALL QUESTIONS AND CONCERNS ADDRESSED. ALL NEEDS MET AT THIS TIME. ALL CARES ENDORSED TO NIGHT RN.
--- NOTE | 2019-10-17 20:21 | NUR ---
RECEIVED PATIENT IN BED AWAKE, ALERT ORIENTED X3 WITH PERIODS OF CONFUSION. NO SIGN OF RESPIRATORY DISTRESS NOTED SATTING AT 98% RA. TELE#8 NSR WITH IST DEGREE AV BLOCK ON MONITOR, DENIES CHESTPAIN. PITTING EDEMA TO BLE NOTED, PATIENT ON HEPARIN 5000 UNITS SQ. PATIENT REFUSED IV REINSERTION, MD AWARE. KEPT ON ISOLATION PRECAITION R/O COVID 19. WILL CONTINUE TO MONITOR.
[2019-10-17 21:05] VITALS: BP 123/81
--- NOTE | 2019-10-18 00:04 | NUR ---
AWAKE RESTING IN A POSITION OF CARE. ATTEMPTED IV REINSERTION, PATIENT REFUSED, MD AWARE. NO SIGN OF DISTRESS NOTED.
--- NOTE | 2019-10-18 05:12 | NUR ---
SLEPT FAIRLY, PATIENT CONFUSED AT TIMES, NO SIGN OF DISTRESS NOTED. CHECKED AT INTERVALS FOR NEEDS AND SAFETY. KEPT ON ISOLATION PRECAUTION R/O COVID.
[2019-10-18 06:06] VITALS: BP 156/87
--- NOTE | 2019-10-18 06:23 | NUR ---
BP-156/87, HYDRALAZINE 10MG PO GIVEN PRESCRIBED. WILL ENDORSE CONTINOUS CARE TO AM SHIFT.
--- NOTE | 2019-10-18 07:30 | NUR ---
PT ENDORSE TO ME THIS MORNING, SETTING UP IN BED AA/O X4 BREATHING EVEN AND UNLABORED ON RA NO ACUTE RESP DISTRESS OR SOB NOTED. TELE 8 84 DENIES ANY CP OR PRESSURE AT THIS TIME. VOIDS USING URINAL/ AMB WITH WALKER/ KNOWS TO CALL FOR ASSISTANCE. NO IV ACCESS AT THIS TIME DR. STEINBERG MADE AWARE. CALL LIGHT IN REACH. BED IN LOW POSITION WILL CONTINUE TO MONITOR.
[2019-10-18 10:26] LABS: CALCIUM 9.5 mg/dL (8.5-10.1); CARBON DIOXIDE 27.2 mmol/L (21-32); CHLORIDE SERUM 103 mmol/L (98-107); CREATININE SERUM 0.9 mg/dL (0.7-1.3); GLUCOSE SERUM 157 mg/dL (74-106); MAGNESIUM 1.9 mg/dL (1.8-2.4); PHOSPHOROUS 2.5 mg/dL (2.5-4.9); POTASSIUM SERUM 4.1 mmol/L (3.5-5.1); SODIUM SERUM 139 mmol/L (136-145)
[2019-10-18 10:33] VITALS: BP 144/88
--- NOTE | 2019-10-18 10:33 | NUR ---
PT REFUSING IV ACCESS THIS AM. DR STEINBERG MADE AWARE.
[2019-10-18 10:48] LABS: BASOPHIL % 0.1 % (0-2); PLATELET COUNT 191 x10^3mcL (130-400); RED CELL DISTRIBUTION WIDTH 14.2 % (11.5-14.5)
[2019-10-18] MEDS ORDERED: LEV250 PO (12:05)
[2019-10-18 13:23] VITALS: BP 150/98
--- NOTE | 2019-10-18 18:11 | NUR ---
EXPLAINED ALL DC PAPER WORK TO PT AND HIS SON, PT AGREED AND SIGNED ALL DC PAPER WORK. PT SON WILL BE PICKING PT UP AND TAKING PT TO [facility] FOR PHYSICAL THERAPY ([facility]). RETURNED TELE BOX 8 BACK TO TELE. PENDING PICK FROM HIS SON.
--- NOTE | 2019-10-18 18:43 | NUR ---
WHEELED PT DOWN TO FRONT OF HOSPTIAL, SON WILL BE DRIVING PT ACROSS THE TO [facility]. PT BREATHING EVEN AND UNLABORED ON RA NO ACUTE RESP DISTRESS NOTED/ DENIES ANY CP OR PRESSURE. PT DC TO SNF.
--- NOTE | 2019-10-18 19:34 | NUR ---
REPORT GIVEN TO EARLY RN FROM [facility].
== END 2019-10-18 18:28 | disposition home or self-care (01) | DRG 871 ==
LOC: ED 14:35 → DU 17:20
PROVIDERS: Emergency Medicine; ADMIT Family Medicine; ATTEND Family Medicine
DX: A41.9 Sepsis, unspecified organism (principal); J96.01 Acute respiratory failure with hypoxia; J18.9 Pneumonia, unspecified organism; I50.32 Chronic diastolic (congestive) heart failure; F17.210 Nicotine dependence, cigarettes, uncomplicated; I11.0 Hypertensive heart disease with heart failure; E83.51 Hypocalcemia; E83.39 Other disorders of phosphorus metabolism; E83.42 Hypomagnesemia; R74.0 Nonspecific elevation of levels of transaminase and lactic acid dehydrogenase [LDH]; I45.10 Unspecified right bundle-branch block; Z20.828 Contact with and (suspected) exposure to other viral communicable diseases; K42.9 Umbilical hernia without obstruction or gangrene; E11.65 Type 2 diabetes mellitus with hyperglycemia; Z87.440 Personal history of urinary (tract) infections; Z79.899 Other long term (current) drug therapy
CPT/HCPCS: 36600; 83880; 84439; 87804; 97112-GP; 97530-GP; G0378; J0456; J0696; J1644; J7030; J7040; J7060; J8540; Q0092; U0003-CS